=== PATIENT | male | born 1995 | race Two or more races ===

== ENCOUNTER 2022-03-06 12:20 | Emergency (ER) | payer OTHER ==
[~2022-03-06] VITALS: Ht 177.8 cm; Wt 65.8 kg
--- NOTE | 2022-03-06 18:20 | NUR ---
Patient discharged to home in stable condition. Written and verbal after care instructions given. Patient verbalizes understanding of instruction.
[2022-03-06 18:36] VITALS: BP 130/83
== END 2022-03-06 18:37 | disposition home or self-care (01) ==
LOC: ER 12:23
DX: T65.91XA Toxic effect of unspecified substance, accidental (unintentional), initial encounter (principal); R41.82 Altered mental status, unspecified; Y92.214 College as the place of occurrence of the external cause
CPT/HCPCS: 82962-TC